=== PATIENT | female | born 2000 | race Caucasian/White ===

== ENCOUNTER 2019-01-24 13:57 | Emergency (ER) | payer BC, OTHER ==
[2019-01-24 14:21] VITALS: BP 96/57
--- NOTE | 2019-01-24 14:36 | UC ---
Skin Complaint HPI - HPI Summary HPI Summary: 18-year-old female comes in with a chief complaint of a laceration to her left index finger. Prescription yesterday with a knife at work. Bleeding stopped with direct pressure. Patient believes she is up-to-date on her tetanus. It was a while when she bumps it started bleeding again. No complaint of any weakness or numbness. - History of Current Complaint Chief Complaint: UCLaceration Time Seen by Provider: 01/24/19 14:23 Stated Complaint: LT INDEX FINGER LAC Hx Last Menstrual Period: 01/02/19 Pain Intensity: 0 - Allergy/Home Medications Allergies/Adverse Reactions: Allergies Allergy/AdvReac Type Severity Reaction Status Date / Time No Known Allergies Allergy Verified 01/24/19 14:16 PMH/Surg Hx/FS Hx/Imm Hx Previously Healthy: Yes - Surgical History Surgical History: None - Family History Known Family History: Positive: Non-Contributory - Social History Alcohol Use: None Substance Use Type: None Smoking Status (MU): Never Smoked Tobacco - Immunization History Most Recent Tetanus Shot: unknown Vaccination Up to Date: Yes Review of Systems All Other Systems Reviewed And Are Negative: Yes Constitutional: Positive: Negative Skin: Positive: Other - SEE HPI Eyes: Positive: Negative ENT: Positive: Negative Respiratory: Positive: Negative Cardiovascular: Positive: Negative Gastrointestinal: Positive: Negative Motor: Positive: Negative Neurovascular: Positive: Negative Musculoskeletal: Positive: Negative Neurological: Positive: Negative Psychological: Positive: Negative Is Patient Immunocompromised?: No Physical Exam Triage Information Reviewed: Yes Appearance: Well-Appearing, No Pain Distress, Well-Nourished Vital Signs: Initial Vital Signs Temp 98.8 F 01/24/19 14:17 Pulse 78 01/24/19 14:17 Resp 14 01/24/19 14:17 BP 96/57 01/24/19 14:17 Pulse Ox 100 01/24/19 14:17 Vital Signs Reviewed: Yes Eye Exam: Normal Eyes: Positive: Conjunctiva Clear Neck: Positive: Supple Respiratory: Positive: No respiratory distress Musculoskeletal: Positive: Strength Intact, ROM Intact Neurological: Positive: Alert Psychological: Positive: Age Appropriate Behavior Skin: Positive: Other - 1 cm linear subcutaneous laceration on the pad of the distal left index finger. No active bleeding at this time. Normal sensation normal capillary refill. Course/Dx - Course Course Of Treatment: Nursing cleaned and dressed the wound. Patient reports she is up-to-date on her tetanus. This laceration occurred yesterday which makes it too far out to suture are close and he will need to heal by primary intention. Reevaluate if any signs of infection or worse in any questions or concerns. - Diagnoses Provider Diagnosis: Laceration of index finger Discharge ED - Sign-Out/Discharge Documenting (check all that apply): Patient Departure All imaging exams completed and their final reports reviewed: No Studies - Discharge Plan Condition: Stable Disposition: HOME Patient Education Materials: Finger Laceration (ED), Laceration Without Closure (ED) Referrals: [facility] [Outside] Additional Instructions: FOLLOW UP WITH YOUR DOCTOR IF NOT COMPLETELY IMPROVED. GET REEVALUATED SOONER IF WORSE; SIGNS OF INFECTION OR ANY QUESTIONS OR CONCERNS. - Billing Disposition and Condition Condition: STABLE Disposition: Home
== END 2019-01-24 14:54 | disposition home or self-care (01) ==
LOC: UCCORT 13:57
DX: N39.0 Urinary tract infection, site not specified (principal); E11.9 Type 2 diabetes mellitus without complications; I10 Essential (primary) hypertension; I51.9 Heart disease, unspecified; Z79.84 Long term (current) use of oral hypoglycemic drugs; E78.5 Hyperlipidemia, unspecified
CPT/HCPCS: 99211; G0463